=== PATIENT | female | born 1985 | race Caucasian/White ===

== ENCOUNTER → 2018-07-06 | Outpatient (CLI) | payer BC ==
--- NOTE | 2018-07-06 11:59 | Diagnostic Imaging Report ---
PROCEDURE: US PELVIC (NON OB) TECHNIQUE: Multiple real-time grayscale images were obtained over the pelvis in various projections transabdominally. INDICATION: Dysfunctional uterine bleeding, amenorrhea. COMPARISON: There are no prior studies available for comparison. FINDINGS: The uterus is nongravid and not enlarged measuring 7.8 x 3.8 x 2.1 cm. There is no focal mass involving the uterus to suggest fibroid. The endometrial lining is not thickened measuring 4 mm. The right ovary is unremarkable. The left ovary could not be identified. The patient did decline the transvaginal probe. There is no pelvic mass or free fluid collection evident. IMPRESSION: 1. There is no evidence for an acute pelvic abnormality. 2. The left ovary was not identified. Dictated by: Dictated on workstation # [id number]
== END ==
LOC: RAD 09:47
PROVIDERS: ATTEND Nurse Practitioner
DX: N91.2 Amenorrhea, unspecified (principal); N93.8 Other specified abnormal uterine and vaginal bleeding
CPT/HCPCS: 76856

== ENCOUNTER → 2021-06-07 | Outpatient (CLI) | payer BC ==
--- NOTE | 2021-06-07 10:33 | Diagnostic Imaging Report ---
CLINICAL INDICATION: Possible left thyroid nodule. EXAM: Ultrasound of the thyroid gland. COMPARISONS: None. FINDINGS: THYROID NODULES: There is a 3 mm x 2 mm x 3 mm anechoic nodule involving the midportion of the right thyroid lobe. This nodule is wider than it is tall and is circumscribed and demonstrates posterior wall enhancement. There is a 3.8 cm x 2.7 cm x 3.2 cm slightly heterogeneous, solid, circumscribed nodule involving the midportion of the left thyroid lobe. This nodule is wider than it is tall and has mixed hyper/hypo/iso-echogenicity. There is central Doppler flow. Unknown if the areas of increased echogenicity associated with this nodule represent calcifications. THYROID GLAND: Besides the thyroid nodules, the thyroid gland has normal size, shape and echogenicity. The right lobe measures 5.4 cm x 1.1 cm x 1.3 cm and the left lobe measures 6.3 cm x 3.3 cm x 3.4 cm in their three dimensions. ISTHMUS: The isthmus is unremarkable and measures 4 mm in thickness. IMPRESSION: 1: There is a 3.8 cm in greatest dimension solid nodule involving the left thyroid lobe. TI-RADS 3. FNA/biopsy is suggested for further evaluation. 2: There is a 3 mm anechoic nodule involving the midportion of the right thyroid lobe. 3: The remainder of the thyroid gland is unremarkable. Dictated by: Dictated on workstation # [id number]
== END ==
LOC: RAD 08:00
PROVIDERS: ATTEND Surgery
DX: E04.2 Nontoxic multinodular goiter (principal)
CPT/HCPCS: 76536

== ENCOUNTER → 2021-06-21 | Outpatient (CLI) | payer BC ==
[~2021-06-21] VITALS: Ht 160 cm; Wt 97.0 kg
[~2021-06-21] MED LIST: LIDOCAINE 1% INJ 20 ML VIAL INJ ONE; LIDOCAINE 1% INJ 50 ML (XYLOCAINE) VIAL ONE
--- NOTE | 2021-06-21 12:25 | Diagnostic Imaging Report ---
INDICATION: Left lobe thyroid nodule. Patient presents for ultrasound guided fine needle aspiration and biopsy. DETAILS OF THE PROCEDURE: The patient was brought to the procedure room and placed on the table in the supine position. Ultrasound imaging of the left neck was performed to evaluate for an appropriate entry site. The left neck was then prepped and draped in the usual sterile fashion. A small amount of 1% lidocaine was utilized for local anesthesia. A total of 4 passes was made into the dominant solid left lobe thyroid nodule utilizing 25-gauge needles and fine-needle aspiration technique. A single pass was made with a Rotex needle and a Rotex biopsy was performed. Hemostasis was obtained. The patient tolerated procedure well and left the Department in stable condition. IMPRESSION: Successful ultrasound guided fine needle aspiration and Rotex biopsy of the dominant left lobe thyroid nodule. Pathology results are currently pending. Dictated by: Dictated on workstation # [id number]
== END ==
LOC: RAD 09:00
PROVIDERS: ATTEND Surgery
DX: E04.1 Nontoxic single thyroid nodule (principal)
CPT/HCPCS: 10005